=== PATIENT | female | born 1990 | race Caucasian/White ===

== ENCOUNTER 2024-06-01 22:51 | Inpatient (IN) | payer BC, SELFPAY ==
[2024-06-01 19:08] VITALS: BP 164/103
[2024-06-01] MEDS: ADRENALIN 0.3 MG IM ×2 (19:17→21:55)
--- NOTE | 2024-06-01 19:23 | ED.GENMED ---
History of Present Illness
General
Chief Complaint: Allergic Reaction
Source: patient
Exam Limitations: none
Time Seen by Provider: 06/01/24 19:14
Nursing documentation reviewed up to this point in time: agreed with
History of Present Illness
History of Present Illness:
33-year-old female with no reported chronic medical issues presents to the ER for evaluation of allergic reaction. Patient reports that she has a known allergy to shellfish as a child. She said she had another allergic reaction after she ate a
slice of pepperoni pizza in July 2023t that time she had whole body hives, shortness of breath and tightness in her throat as well as some crampy abdominal pain. She says that she attributed that reaction to possibly some contamination of the
pizza with seafood as apparently there were some anchovies on another pizza ordered from this same restaurant. Tonight she had pepperoni pizza once again and about 30 minutes later began to develop some sensation of swelling in her tongue,
tightness in her throat and mild shortness of breath. She denies any hives or pruritus at this time. She says she has some mild crampy abdominal pain. No vomiting. Came to the ER to be evaluated. She says ingestion was about 5:15 PM tonight.
She did not take any medications tonight.
Past History
Past History
ED Past Medical History: None
ED Past Surgical History: Orthopedic
Review of Systems
Review of Systems
All Other Systems: ROS reviewed and negative except as documented in HPI and ROS
EENT: Reports other (Tongue swelling, itchiness/tightness in her throat)
Respiratory: Reports trouble breathing; Denies cough
Cardiac: Denies chest pain
ABD/GI: Reports abdominal pain; Denies nausea or vomiting
Skin: Denies itching or rash
Neurological: Denies dizzy
Phy Exam
Physical Exam
Physical Exam:
General: Awake, alert, oriented x3; anxious but nontoxic
Head: Normocephalic, atraumatic
Eyes: Conjunctiva normal, pupils equal round and reactive to light bilaterally
Throat: Airway intact, handling secretions; no significant amount of objective swelling of the tongue�her posterior oropharynx/uvula are fully visible without tongue depressor, no uvular edema
Neck: Trachea midline, supple without meningismus
Lungs: Clear to auscultation bilaterally, no wheezing, rales, rhonchi
Heart: Regular rate and rhythm, no murmurs, gallops, or rubs
Abd: Soft, non distended, nontender
Neuro: No gross deficits
Skin: no rash or hives noted
Extremities: No edema in extremities, warm and well-perfused
Scores
Heart Failure Risk
Heart Failure Risk Score: Not Applicable
Heart Score for Chest Pain Patients
STEMI patient?: Not applicable
Withdrawal Assessment of Alcohol
Withdrawal Assessment Completed?: Not applicable
Course
Orders/Labs/Results
Orders:
Orders
06/01/24 19:13
EPINEPHrine PF [Adrenalin] 1 mg .ROUTE .STK-MED ONE
06/01/24 19:15
EPINEPHrine PF [Adrenalin] 0.3 mg IM NOW STA
06/01/24 19:21
Famotidine [Pepcid] 20 mg IV NOW STA
Loratadine [Claritin] 10 mg PO NOW STA
MethylPREDNISolone PF [Solu-Medrol Pf] 125 mg IV NOW STA
06/01/24 21:51
EPINEPHrine PF [Adrenalin] 0.3 mg IM NOW STA
Vital Signs
Initial and Last Documented VS:
Initial Vital Signs
Temp Pulse Resp BP Pulse Ox
36.4 C 70 18 164/103 98
06/01/24 19:08 06/01/24 19:08 06/01/24 19:08 06/01/24 19:08 06/01/24 19:08
Last Documented Vital Signs
Temp Pulse Resp BP Pulse Ox
36.4 C 65 16 109/72 96
06/01/24 19:08 06/01/24 21:00 06/01/24 20:59 06/01/24 21:00 06/01/24 21:00
MDM/Problems Addressed
Differential Diagnosis Includes:
Allergic reaction/anaphylaxis
MDM/Problems Addressed:
33-year-old female presents for evaluation of tongue swelling, throat itchiness/tightness and mild shortness of breath, mild crampy abdominal pain that started after eating pepperoni pizza; she had similar allergic reaction to pepperoni pizza about
a year ago but contributed to some cross-contamination at that time. Hypertensive otherwise normal vitals. Exam as above. Concern for anaphylaxis with sensation of tongue swelling, crampy abdominal pain and shortness of breath. Given her
sensation of tongue swelling and throat tightness will dose with epinephrine. Will treat with steroid and antihistamines. Monitor very closely reassess after the above.
Clinical reassessment after medications as above patient's symptoms improved. Continue to monitor.
Clinical reassessment patient says no longer has tingling or swelling of the tongue but still feels some tingling in her lower lip. No shortness of breath. No pruritus. No GI symptoms. Exam stable. Continue to monitor.
Clinical reassessment patient now complaining of sensation of swelling and tingling on the tongue once again and she does have some increased swelling on clinical exam. She also has some puffiness of the lower lip which appears new. She does feel
some tightness in the throat once again. Will repeat intramuscular epinephrine. Given repeated doses of epinephrine will plan to admit for observation overnight. Case discussed with hospitalist.
*Pulse Oximetry
Patient hypoxic: no
*Critical Care Note
Total Time (30-74mins, 75-104mins- exclusive of procedures): Not Applicable
Data Reviewed
Source: patient and family (Mother)
ED Attending Note
-
Portions of this chart may have been created with voice recognition software.� Occasional wrong word or��sound alike� substitutions may have occurred due to the inherent limitations of voice recognition software.
Discharge Plan
Departure
Patient Disposition: Admit
Date of Disposition: 06/01/24
Time of Disposition: 21:54
Admit to doctor: Rosibel
Presentation/result/management discussed w/ accepting MD/DO: Hospitalist
Discharge Problem:
Allergic reaction, Hypertension
Prescriptions:
New
prednisone 50 mg tablet
50 mg PO DAILY Qty: 4 0RF
epinephrine [EpiPen 2-Salvatore] 0.3 mg/0.3 mL auto-injector
0.3 mg IM ONCE Qty: 2 0RF
No Action
tramadol 50 MG tablet
50 mg PO Q6HPRN PRN (Reason: severe pain) Qty: 15 0RF
Referrals:
Marce Burns PA-C [Family Provider] - Follow up in 5-7 days
Interventions
Interventions:
*Risk Screen - Suicide Last Done: 06/01/24 19:25
*General Assessment Last Done: 06/01/24 19:25
*Neglect/Abuse Screening Last Done: 06/01/24 19:25
*ED COVID-19 Vaccine History Last Done: 06/01/24 19:25
ED- Cardiac Assessment Last Done: 06/01/24 19:33
ED- Pulmonary Assessment Last Done: 06/01/24 19:33
ED-Skin Assessment Last Done: 06/01/24 19:33
Discharge Date and Time
Print Language: GREENLANDIC
[2024-06-01 19:25] VITALS: BMI 34.9
[2024-06-01] MEDS: CLARITIN 10 MG PO (19:31)
[2024-06-01] MEDS: SOLU-MEDROL PF 125 MG IV (19:33)
[2024-06-01] MEDS: PEPCID 20 MG IV (19:39)
[2024-06-01 20:54] VITALS: BP 105/73
[2024-06-01 21:00] VITALS: BP 109/72
[2024-06-01 22:00] VITALS: BP 107/73
--- NOTE | 2024-06-01 22:46 | HPS.HSE ---
Family Physician
-
Family Physician: Marce Burns PA-C
Chief Complaint
-
Anaphylaxin reaction to Pepperoni Pizza
History of Present Illness
HPI
33F No significant PMHX seen at ER for evaluation of tongue swelling, throat itchiness/tightness and mild shortness of breath, mild crampy abdominal pain that started after eating pepperoni pizza
She had similar allergic reaction to pepperoni pizza about a year ago but contributed to some cross-contamination at that time. She says ingestion was about 5:15 PM tonight.
ROS
- denies any hives or pruritus at this time
- some mild crampy abdominal pain. No vomiting.
Medical History
Past Medical History
Past Medical History: Reports Other (Allergic reaction to pepperoni pizza ( ? ) about a year ago)
Past Surgical History: Reports Orthopedic
Social History
Tobacco: Non-smoker
Alcohol: None
Family History
Family History: Not pertinent
Allergies / Home Medications
Allergies reflects when Allergies were last updated in [facility].
Home Medications with original date entered in [facility]
Allergy/Medication List:
Allergies
Allergy/AdvReac Type Severity Reaction Status Date / Time
diphenhydramine Allergy Unknown Verified 06/01/24 19:08
[From Benadryl]
shellfish derived Allergy Anaphylaxis Verified 06/01/24 19:08
Home Medications
epinephrine 0.3 mg/0.3 mL injection, auto-injector (EpiPen 2-Salvatore) 0.3 mg (0.3 mL) IM ONCE #2 ea 06/01/24
fluticasone propionate 50 mcg/actuation nasal spray,suspension 1 spray intranasal DAILY 06/01/24
loratadine 10 mg tablet 10 mg PO DAILY 06/01/24
prednisone 50 mg tablet 50 mg PO DAILY #4 tabs 06/01/24
sertraline 50 mg tablet 25 mg PO DAILY 06/01/24
Review of Systems
-
Constitutional: Reports See HPI
EENT: Reports See HPI
Respiratory: Reports No Symptoms
Cardiac: Reports No Symptoms
Abdomen/GI: Reports No Symptoms
: Reports No Symptoms
Musculoskeletal: Reports No Symptoms
Skin: Reports No Symptoms
Neurological: Reports No Symptoms
Endocrine: Reports No Symptoms
Hematologic/Lymphatic: Reports No Symptoms
Psych: Reports No Symptoms
Physical Exam
Vital Signs
Vital Signs
Temp Pulse Resp BP Pulse Ox
97.5 F 65 16 109/72 96
06/01/24 19:08 06/01/24 21:00 06/01/24 20:59 06/01/24 21:00 06/01/24 21:00
Physical Exam
General: Well Developed, Well Nourished and No Apparent Distress
HEENT: NormoCephalic, Moist mucous membranes and Atraumatic
Respiratory: Clear
Cardiac: S1/S2 and Regular Rhythm; No Murmur or Rub
GI: Soft, Non Tender, Non Distended and Normal Bowel Sounds; No Organomegaly
Rectal: Deferred by Provider
Musculoskeletal: No Clubbing, No Cyanosis and No Edema
Skin: No Rash
Neuro: Nonfocal/grossly intact
Laboratory Results
-
pending
Data Reviewed
-
Lab Data: Labs Reviewed by me (pending )
Impression/Plan
-
Vital Signs
Temp Pulse Resp BP Pulse Ox
97.5 F 65 16 109/72 96
06/01/24 19:08 06/01/24 21:00 06/01/24 20:59 06/01/24 21:00 06/01/24 21:00
Data: pending
ASSESSMENT & PLAN
Anaphylaxis reaction: itching in throat, tongue swelling, abd cramp, SOB.
She did have some mild tongue swelling on initial assessment at ER
Precipitant : presumed pepperoni pizza vs contaminated with shell fish ?
Nl VSS. Not bronchospastic
HX Shell fish allergy
HX exercise induced asthma
- s/p first Epi , IV Methyl prednisone , IV antihistamines with improved symtoms
- Rebound symptoms 2 hr after above Tx with mild SOB and throat tightness.
- repeat dose of Epi
- Medrol dose pack
- IV Benadryl 25mg q6 Hrs PRB
- IV H2B PRN
HX Depression on Sertraline
- stable
DVT Px: LMWH
Full code
Ip TLM
[2024-06-01 23:00] VITALS: BP 111/68
[2024-06-02] VITALS: BP 109/69
[2024-06-02 00:32] VITALS: BP 118/71; BMI 33.9
[2024-06-02] MEDS: MEDROL 24 MG PO (00:56)
[2024-06-02 03:25] VITALS: BP 109/69
[2024-06-02 06:59] LABS: % Basophils 0.2 % (0-2); % Immature Granulocytes 0.4 % (0-0.5); % Lymphocytes 15.2 % (20.5-51.1); % Neutrophils 83.2 % (42.2-75.2); Absolute Lymphocytes 0.7 10^3/uL (1.2-3.4); Absolute Monocytes 0.1 10^3/uL (0.1-0.6); Hematocrit 38.2 % (37.0-47.0); Hemoglobin 13.4 g/dL (12.0-16.0); Mean Corp Hgb Conc. 35.1 g/dL (33.0-37.0); Mean Corpuscular Hgb 29.1 pg (27.0-31.0); Mean Corpuscular Volume 82.9 fL (81.0-99.0); Mean Platelet Volume 10.5 fL (7.4-10.4); Nucleated Red Blood Cells % 0 %; Platelet Count 240 10^3/uL (130-400); Red Blood Cell Count 4.61 10^6/uL (4.20-5.40); Red Cell Dist. Width 12.1 % (11.5-14.5); White Blood Cell Count 4.8 10^3/uL (4.8-10.8)
--- NOTE | 2024-06-02 07:23 | W.PN.HOSP.TC ---
Addendum entered and electronically signed by Jesu Lovelace MD, Resident 06/02/24 17:50:
CLARIFICATION: DVT Prophylaxis- low molecular weight heparin
Addendum entered and electronically signed by Luzmaria James MD 06/02/24 17:47:
I saw and evaluated the patient independently. I reviewed the resident�s note and agree with findings and plan as documented by Dr. Lovelace.
GENERAL: well developed, well nourished, female in no apparent distress
HEENT: NC/AT--no stridor or wheezing--no O2 requirements
HEART: regular rate and rhythm, +S1, +S2
LUNGS : clear to auscultation bilaterally--no wheezing
ABDOM: soft, nontender, nondistended, + bowel sounds
EXT: no cyanosis, clubbing, or edema
Anaphylactic reaction--unclear to what--Hx of shellfish allergy but last 2 times has been pepperoni pizza--s/p epinephrine, IV methylprednisolone, IV antihistamines with improved symptoms shortly after in ED--cont benadryl/H2 blockers as tolerated
by pt--keep EPI PEN with her
History of exercise-induced asthma
History of depression on sertraline
CODE STATUS--Full
Original Note:
Today's Communication/Plan
-
Patient is back at her baseline and believes that she is ready for discharge. Patient is medically stable. We will move forward with discharge planning.
Assessment / Plan
Assessment / Plan
Assessment/Plan:
-Anaphylactic reaction:
Tongue swelling, throat itchiness and tightness, mild shortness of breath, crampy abdominal pain after eating pepperoni pizza
Had a similar allergic reaction to pepperoni pizza a year ago but thought it was due to cross-contamination with other allergens
Did not have any hives or pruritus at the time
In the emergency department the patient first got epinephrine, then IV methylprednisolone then IV antihistamines with improved symptoms shortly after.
Unfortunately she had rebound symptoms around 2 hours after treatment with mild shortness of breath and throat tightness -she was given another dose of epinephrine and a Medrol Dosepak
Patient was given IV Benadryl 25 mg every 6 hours as needed
Patient was given IV H2 blockers as needed
-History of shellfish allergy
-History of exercise-induced asthma
-History of depression on sertraline
CODE STATUS: Full
Stress Ulcer Prophylaxis: Low molecular weight heparin
Imaging: N/A
Procedures: N/A
Anticipated Discharge: Today
Subjective/Interval History
-
Date of Service: June 02, 2024
Met with patient at the bedside. She is doing well and offers no complaints at the present time. She believes that if she is ready to go home and that her anaphylactic reaction has ended. She states that she keeps an EpiPen on her at all times.
Patient has been advised to meet with her tile installer in the outpatient setting.
Objective Data
-
Labs:
Labs
06/02/24 06:44
06/02/24 06:44
Vital Signs:
Vital Signs
Temp Pulse Resp BP Pulse Ox
97.8 F 81 16 109/69 94
06/02/24 03:25 06/02/24 03:25 06/02/24 03:25 06/02/24 03:25 06/02/24 03:25
Review of Systems
-
History Source: Patient
All other systems: Reviewed and negative
Constitutional: Reports No Symptoms
EENT: Reports No Symptoms Reported
Respiratory: Reports No Symptoms
Cardiac: Reports No Symptoms
Abdomen/GI: Reports No Symptoms
Breast: Reports No Symptoms
Genitourinary: Reports No Symptoms
Musculoskeletal: Reports No Symptoms
Skin: Reports No Symptoms
Neuro: Reports No Symptoms
Endocrine: Reports No Symptoms
Hematologic / Lymphatic: Reports No Symptoms
Physical Exam
-
General: Well Developed, Well Nourished and No Apparent Distress
HEENT: Normocephalic, Atraumatic and Moist Mucous Membranes
Respiratory: Clear to Auscultation
Cardiac: Regular Rhythm and S1/S2; Negative Murmur or Rub
Breast: Deferred by me
GI: Soft, Nontender, Nondistended and Normal Bowel Sounds
Rectal: Deferred by Provider
Genito-urinary: Deferred by me
Musculoskeletal: No Clubbing, No Cyanosis and No Edema
Skin: Warm and Dry; Negative Rash or Ulcers
Neuro: Awake, Alert, Oriented and AO x 3
Psych: Calm
[2024-06-02 07:24] LABS: ALT (SGPT) 23 U/L (0-35); AST (SGOT) 23 U/L (14-36); Albumin 4.5 g/dl (3.5-5.0); Alkaline Phosphatase 65 U/L (38-126); Blood Urea Nitrogen 10 mg/dl (7-17); Carbon Dioxide 18 mmol/L (22-30); Chloride 107 mmol/L (98-107); Estimated Creatinine Clearance > 125 ml/min; Glucose 159 mg/dl (70-99); Potassium 4.1 mmol/L (3.5-5.1); Sodium 138 mmol/L (135-145); Total Bilirubin 0.6 mg/dl (0.2-1.3); Total Protein 7.1 g/dl (6.3-8.2); eGFR > 60.00
[2024-06-02 07:37] VITALS: BP 107/73
[2024-06-02] MEDS: ZOLOFT 25 MG PO (08:52)
[2024-06-02] MEDS: NSS (PRESERVATIVE FREE) 8 ML IV (08:53)
[2024-06-02] MEDS: PEPCID 20 MG IV (08:53)
[2024-06-02 11:09] VITALS: BP 102/68
[2024-06-02] MEDS: MEDROL 20 MG PO (12:54)
--- NOTE | 2024-06-02 13:44 | CM ---
CM met with pt and noted dc order
Bedside meeting with pt
She resides with her spouse and denies financial insecurities
PCP- Marce Burns
Rx- RAINE Calhoun
Discharge Disposition- home no needs, sister will transport
[2024-06-02 15:32] VITALS: BP 102/67
--- NOTE | 2024-06-02 18:11 | W.DCSUMMARY ---
Addendum entered and electronically signed by Luzmaria James MD 06/02/24 18:28:
Read, reviewed, and agree. See same day progress note for additional details. Time spent coordinating care, DC planning, review of DC plan of care with resident, transition of care, review of records in EMR, med rec, consults, notes, d/w
consultants, nursing, family, and CM = 22 minutes
Original Note:
Discharge Summary
Discharge Data
Date of Admission: 06/02/24
Date of Discharge: 06/02/24
-
Pending Results: No
Hospital Course
Discharging Physician : Luzmaria James MD
Disposition : Home
Primary care physician : Marce Burns
Principal Discharge diagnosis : Anaphylactic reaction
Chronic Discharge diagnosis : Hypertension, shellfish allergy
Hospital Course : Patient is a 33-year-old woman with no reported chronic medical issues who presented to the emergency department due to an allergic reaction. The patient reported that she has a known shellfish allergy. She had another allergic
reaction after she ate a slice of pepperoni pizza on July 2023 and at that time she had whole body hives, shortness of breath and tightness in her throat as well as some crampy abdominal pain. She was unsure whether the cause of that reaction was
due to the pepperoni or possible cross-contamination with a fish product such as anchovies at the pizza place. On the evening prior to her presentation she had a slice of pepperoni pizza and after 30 minutes she began to have a sensation of
swelling in her tongue, tightness in her throat, mild shortness of breath. She did not have any hives or pruritus at that time. She stated that she had some mild crampy abdominal pain but did not have any vomiting. She came to the emergency
department for further evaluation. In the emergency department her vitals were unremarkable. Her hematologic lab work was within normal limits. Metabolic panel showed slightly low bicarb at 18 with an elevated glucose of 159. These findings were
not relevant to the patient's anaphylaxis. In the emergency department she got epinephrine, then IV methylprednisolone, then IV antihistamines with improved symptoms shortly after. The patient was admitted at [facility] for anaphylactic
reaction.
Unfortunately, she had rebound symptoms 2 hours after her initial treatment with mild shortness of breath and throat tightness. She was given another dose of epinephrine and a Medrol Dosepak. She was also given IV Benadryl to 25 mg every 6 hours
as needed, and was given IV H2 blockers as needed. By the morning of 06/02/24 the patient had returned back to her normal baseline. The the patient's anaphylactic reaction had resolved and the patient no longer had any symptoms. Patient felt that
she is ready to go home and would like to be discharged.
The patient has reached maximal benefit from this hospital admission and the patient is appropriate for discharge at the present time. There are no barriers that would impede the patient from being discharged from the hospital at the present time.
The patient should follow-up with their primary care provider within 1 week following discharge. The patient should follow-up with her inspector filters within 1 week following discharge to better determine what is triggering her anaphylactic reactions.
Important imaging findings : N/A
Procedure findings : N/A
Discharge Plan
-
Patient Disposition: Home (Routine Discharge)
Discharge Diagnosis/Procedures: Anaphylactic Reaction
Condition: Good
Diet: No restrictions
Activity: No restrictions
Driving Restrictions: As prior to admission
Bathing Restrictions: None
Referrals:
Marce Burns PA-C [Family Provider] - in less than 1 week
Prescriptions:
New
epinephrine [EpiPen 2-Salvatore] 0.3 mg/0.3 mL auto-injector
0.3 mg IM ONCE Qty: 2 0RF
Continued
fluticasone propionate 50 mcg/actuation [place],Suspension
1 spray INTRANASAL DAILY
sertraline 50 mg Tablet
25 mg PO DAILY
loratadine 10 mg Tablet
10 mg PO DAILY
Discharge Orders:
Discharge Patient (As Directed); Ordered 06/02/24
Ordered By: Jesu Lovelace
Discharge Date and Time
Discharge Date/Time: 06/02/24 15:42
Print Language: HUNGARIAN
== END 2024-06-02 15:42 | disposition home or self-care (01) | DRG 916 ==
LOC: 1 ACUTE 22:51
PROVIDERS: ADMITTING PHYSICIAN Internal Medicine; ATTENDING PHYSICIAN Internal Medicine; EMERGENCY PHYSICIAN Emergency Medicine; FAMILY PHYSICIAN Physician Assistant Medical
DX: T78.09XA Anaphylactic reaction due to other food products, initial encounter (principal); I10 Essential (primary) hypertension; Z91.013 Allergy to seafood; Z79.899 Other long term (current) drug therapy; F32.A Depression, unspecified; X58.XXXA Exposure to other specified factors, initial encounter
CPT/HCPCS: 80053; 85025; 96372; 96374; 96375; 99284

== ENCOUNTER 2025-03-14 17:12 | Observation (INO) | payer BC, SELFPAY ==
[2025-03-14 14:23] VITALS: BP 137/75
[2025-03-14 16:13] LABS: Hematocrit 33.9 % (37.0-47.0); Hemoglobin 11.8 g/dL (12.0-16.0); Mean Corp Hgb Conc. 34.8 g/dL (33.0-37.0); Mean Corpuscular Volume 83.9 fL (81.0-99.0); Nucleated Red Blood Cells % 0 %; Platelet Count 227 10^3/uL (130-400); Red Cell Dist. Width 12.4 % (11.5-14.5)
[2025-03-14] MEDS: LR 1000 IV (16:22)
--- NOTE | 2025-03-14 16:22 | HP.FOC2 ---
Focused History & Physical
Chief Complaint
HPI:
Chief Complaint:
HPI / Indication for Planned Procedure: 34 y/o at @ 8wks gestation with LEFT ectopic . Pt presented to office today for viability ultrasound, and appears to be located in LEFT adnexa, heartbeat noted. Pt without pain,
bleeding. Patient had some spotting a few days ago, resolved in hours.
History of SAb 3 months ago, did not require D&E.
Relevant Past Medical History: COPD or Pulmonary Disease (exercise induced asthma) and Other (anxiety)
Relevant Social History: Negative
Relevant Family History: Negative
Relevant Past Surgical History: Positive for (back surgery)
Review of Systems
Review of Pertinent Systems: All Systems Negative
Medication
See Medication form for detailed medications: Yes
Medication List (including Herbals & OTC):
epinephrine 0.3 mg/0.3 mL injection, auto-injector (EpiPen 2-Salvatore) 0.3 mg (0.3 mL) IM ONCE #2 ea 06/01/24
fluticasone propionate 50 mcg/actuation nasal spray,suspension 1 spray intranasal DAILY 06/01/24
loratadine 10 mg tablet 10 mg PO DAILY 06/01/24
sertraline 50 mg tablet 25 mg PO DAILY 06/01/24
Medications Reviewed: Yes
Allergies and Reactions
Patient has Allergies: Yes
Noted Allergies and Reactions:
Allergy/AdvReac Type Severity Reaction Status Date / Time
diphenhydramine (From Allergy Severe Seizure Verified 03/14/25 14:23
Benadryl)
shellfish derived Allergy Anaphylaxis Verified 03/14/25 14:23
Pertinent Physical Exam
All Other Systems: Negative
Head/Neck: Normal
Lungs: Normal
Heart: Normal
Abdomen: Normal
Extremities: Normal
Neurological: Normal
Other: Pelvic exam deferred
Diagnosis / Assessment
Ectopic with heartbeat.
Plan / Procedure
Admit, patient aware due to the heartbeat, she is not a candidate for medical management and will require surgical intervention. Reviewed with patient/ proposed surgery of diagnostic laparoscopy, operative laparoscopy, salpingectomy,
possible oophorectomy, possible exploratory laparotomy. Reviewed possible risks and complications including bleeding, infection, internal organ damage, need for additional surgeries and/or hospitalizations. Consent signed
Anesthesia/Sedation to be done by Anesthesia Provider: Yes
[2025-03-14 16:28] LABS: ALT (SGPT) 14 U/L (0-35); AST (SGOT) 21 U/L (14-36); Albumin 3.9 g/dl (3.5-5.0); Alkaline Phosphatase 57 U/L (38-126); Blood Urea Nitrogen 9 mg/dl (7-17); Calcium 9.3 mg/dl (8.4-10.2); Carbon Dioxide 23 mmol/L (22-30); Chloride 105 mmol/L (98-107); Glucose 82 mg/dl (70-99); Potassium 3.7 mmol/L (3.5-5.1); Sodium 136 mmol/L (135-145); Total Protein 6.5 g/dl (6.3-8.2); eGFR > 60.00
[2025-03-14 18:48] VITALS: BP 112/73
[2025-03-14 19:00] VITALS: BP 109/66
[2025-03-14] MEDS: DILAUDID 0.5 MG IV (19:06)
[2025-03-14 19:15] VITALS: BP 115/74
[2025-03-14] MEDS: ZOFRAN 4 MG IV (19:18)
[2025-03-14 19:30] VITALS: BP 110/71
[2025-03-14 19:45] VITALS: BP 111/71
[2025-03-14] MEDS: DILAUDID 2 MG PO (19:48)
== END 2025-03-15 10:06 | disposition home or self-care (01) ==
LOC: PACUI 17:12
PROVIDERS: Physician Assistant; ADMITTING PHYSICIAN Obstetrics & Gynecology
DX: Z36.89 Encounter for other specified antenatal screening (principal); J45.990 Exercise induced bronchospasm; F41.9 Anxiety disorder, unspecified; O00.102 Left tubal pregnancy without intrauterine pregnancy
CPT/HCPCS: 59151; 80053; 84702; 85025; 86850; 86900; 86901; 88305; 96360; 99284; G0378